=== PATIENT | male | born 1970 | race Caucasian/White ===

== ENCOUNTER 2021-05-19 18:01 | Emergency (ER) | payer SELFPAY ==
--- NOTE | 2021-05-19 18:04 | ED.BACK ---
HPI - Back Pain/Injury General Chief Complaint: Back Pain/Injury Stated Complaint: Lower back pain Time Seen by Provider: 05/19/21 18:04 Source: patient and RN notes reviewed History of Present Illness HPI Narrative: Patient is a 50-year-old male who presents the urgent care with complaints of low back pain radiating down the left leg. Patient states approximately 1 week ago he got up out of bed and noticed some low back pain across the entire back. Patient states that now just concentrated on the left with the radiation down the left thigh. Patient states he does have a history of sciatica. Denies of any known trauma or injury. States that he took 200 mg of ibuprofen. No other acute complaints. No acute distress noted. Patient aware of the plan of care. Some parts of this dictation were generated by voice recognition software and may contain typographical and/or grammatical inaccuracies. Related Data Allergies Allergy/AdvReac Type Severity Reaction Status Date / Time No Known Allergies Allergy Verified 05/19/21 18:23 Review of Systems Review of Systems: CONSTITUTIONAL: Denies fever, chills, or sweats. EYES: Denies visual changes, redness, or discharge. ENT: Denies rhinorrhea, congestion, sore throat, or otalgia. CARDIOVASCULAR: Denies chest pain, palpitations, or edema. RESPIRATORY: Denies cough or dyspnea. GASTROINTESTINAL: Denies abdominal pain, nausea, vomiting, or diarrhea. GENITOURINARY: Denies dysuria or hematuria. SKIN: Denies rash or itching. MUSCULOSKELETAL: Reports of low back pain radiating down the left leg NEUROLOGIC: Denies headache, numbness, or weakness. All other systems reviewed are negative, except as documented in HPI. PMFSH Comments At the time of my signature, I reviewed and agree with the nursing past medical, surgical, social, and family history. There is no relevant family history pertinent to the patient complaint. Exam Narrative: GENERAL: This is a well-nourished, well-developed patient, in no apparent distress. HEAD: normocephalic, atraumatic. EYES: PERRL. Sclera clear/white. Vision is grossly intact. EARS: External ears normal NOSE: External nose normal with no obvious nasal discharge, nares without redness, no rhinorrhea. THROAT: Mucous membranes moist NECK: Neck supple, non-tender without lymphadenopathy, masses or thyromegaly. CARDIOVASCULAR: Regular rate and rhythm without RESPIRATORY: Clear to auscultation. Breath sounds equal bilaterally. No wheezes, rales, or rhonchi. SKIN: warm, intact with no suspicious lesions or rash, good texture and turgor. NEURO: awake, alert, and oriented to person, place and time. There were no obvious focal neurologic abnormalities. EXTREMITIES: No clubbing, cyanosis, or edema. BACK: Moderate left lumbar tenderness with positive left SLE Course Vital Signs Vital signs: Vital Signs Temperature 98.0 F 05/19/21 18:15 Pulse Rate 85 05/19/21 18:15 Respiratory Rate 18 05/19/21 18:15 Blood Pressure 156/95 H 05/19/21 18:15 Pulse Oximetry 99 05/19/21 18:15 Temperature 98.0 F 05/19/21 18:15 Pulse Rate 85 05/19/21 18:15 Respiratory Rate 18 05/19/21 18:15 Blood Pressure 156/95 H 05/19/21 18:15 Pulse Oximetry 99 05/19/21 18:15 Reviewed-patient is informed that they may have pre-hypertension or hypertension based on a blood pressure reading in the department. I recommend the patient call the primary care provider listed on their discharge instructions or a physician of their choice this week to arrange follow-up for further evaluation of possible pre-hypertension or hypertension. MDM - Back Pain/Injury MDM Narrative Medical decision making narrative: Advised the patient to complete steroid regimen as prescribed. Be sure to eat and drink with the medication. Use the ibuprofen as needed for pain as well as a heating pad or ice pack. Use in 20-minute intervals and do not sleep with an ice pack or heating pad. Use Flexeril as nee
[2021-05-19 18:15] VITALS: BP 156/95; PULSE 85; RESP 18; TEMP 36.7; O2SAT 99
== END 2021-05-19 18:34 | disposition home or self-care (01) ==
PROVIDERS: Emergency Provider Nurse Practitioner Family
DX: M54.32 Sciatica, left side (principal)
CPT/HCPCS: 99213; G0463

== ENCOUNTER 2022-04-19 18:02 | Emergency (ER) | payer SELFPAY ==
--- NOTE | ~2022-04-19 | XR_ITS ---
XR wrist LT min 3V DATE: 04/19/2022 18:40 INDICATION: Palpable knot at lateral aspect of wrist for one month. No known injury. TECHNIQUE: 4 views COMPARISON: None FINDINGS: No fracture or dislocation, periosteal reaction or bone destruction, erosive change or delmy drocalcinosis. No abnormal soft tissue calcification. No subcutaneous emphysema. IMPRESSION: Negative Reviewed, dictated and finalized at location A. IMPRESSION: Negative
[2022-04-19 18:20] VITALS: BP 146/94; PULSE 80; RESP 20; TEMP 36.8; O2SAT 98
--- NOTE | 2022-04-19 19:15 | ED.UPPEXIN ---
HPI - Extremity Injury (Upper) General Chief Complaint: Extremity Injury, Upper Stated Complaint: Pain in the left wrist Time Seen by Provider: 04/19/22 18:50 Source: patient, RN notes reviewed and old records reviewed Mode of arrival: ambulatory Limitations: no limitations History of Present Illness HPI narrative: 51-year-old male who presents to [facility] with complaints of pain to the lateral aspect of the wrist on thumb side for 1 month with no known injury. Patient states that the other day he felt a popping sensation in his left wrist. 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 Patient denies any tingling or numbness to his left hand or fingers, does have area of palpable tenderness to inner wrist area thumb side which also increases with use of his thumb, has been using ice to wrist area. Treatments prior to arrival: cold therapy Related Data Allergies Allergy/AdvReac Type Severity Reaction Status Date / Time No Known Allergies Allergy Verified 04/19/22 18:35 Review of Systems Review of Systems: CONSTITUTIONAL: Denies fever, chills, or sweats. EYES: Denies visual changes, redness, or discharge. ENT: Denies rhinorrhea, congestion, sore throat, or otalgia. CARDIOVASCULAR: Denies chest pain, palpitations, or edema. RESPIRATORY: Denies cough or dyspnea. GASTROINTESTINAL: Denies abdominal pain, nausea, vomiting, or diarrhea. GENITOURINARY: Denies dysuria or hematuria. SKIN: Denies rash or itching. MUSCULOSKELETAL: Denies back pain, pain to left wrist, or myalgia. NEUROLOGIC: Denies headache, numbness, or weakness. PSYCHIATRIC: Denies anxiety or depression. All systems reviewed & are unremarkable except as noted in HPI and below PMFSH Past Medical History Medical History (Updated 04/22/22 @ 09:07 by Kat Ruiz NP) Atrial fibrillation Fracture of left elbow Surgical History Surgical History (Updated 04/22/22 @ 09:01 by Kat Ruiz NP) H/O arthroscopy of left knee History of cardiac radiofrequency ablation x2 Social History Social History (Updated 04/22/22 @ 09:01 by Kat Ruiz NP) Smoking packs per day: 1 Smoking cigarettes per day: 20.0 Years smoked: 25 Smoking pack-years: 25.00 Smoking status: Former smoker Tobacco type: cigarettes Additional smoking assessment comments: Quit September of 2018 Alcohol intake: current Alcohol use details: social Substance use type: does not use Living arrangements: with family Gender identity (if verbalized by the patient): Male Comments At time of signature, agree with nursing past medical, surgical, social and family history. There is no relevant family history pertinent to the presenting complaint Exam Narrative: GENERAL: Well-appearing, well-nourished, and in no acute distress. HEAD: Normocephalic, atraumatic. EYES: PERRLA and EOMI. ENT: Nares clear, no rhinorrhea or epistaxis. Mucous membranes moist.TM's normal with good light reflex, throat pink with no lesions or exudates or tonsil swelling. NECK: Supple.no lymphadenopathy CHEST: Clear to auscultation. No respiratory distress.SAO2 98% on room air HEART: Regular rate and rhythm. No murmur heard. Normal peripheral pulses. ABDOMEN: Soft, nontender, nondistended, normal active bowel sounds. EXTREMITIES: Normal range of motion. No edema.no noted obvious deformity of left wrist, palpable tenderness to left inner wrist thumb side with no palpable mass or noted acute swelling, mobility is intact but with some stated discomfort, circulation and sensation intact to left wrist and hand. SKIN: Warm, dry, no rash. NEURO: No focal deficits. Alert and oriented x3. Course Course Level of Care: Express Care Visit Vital Signs Vital signs: Vital Signs Temperature 36.8 C 04/19/22 18:20 Pulse Rate 80 04/19/22 18:20 Respiratory Rate 20 04/19/22 18:20 Blood Pressure 146/94 H 04/19/22 18:20 Pulse Oximetry 98 07
== END 2022-04-19 19:43 | disposition home or self-care (01) ==
PROVIDERS: Emergency Provider Registered Nurse
DX: M25.532 Pain in left wrist (principal); Z87.891 Personal history of nicotine dependence; I48.91 Unspecified atrial fibrillation
CPT/HCPCS: 73110; 99213; G0463

== ENCOUNTER 2022-05-29 09:27 | Emergency (ER) | payer SELFPAY ==
[2022-05-29 09:32] VITALS: BP 151/83; PULSE 96; RESP 18; TEMP 36.6; O2SAT 98
--- NOTE | 2022-05-29 10:07 | ED.URI ---
HPI - URI/Sore Throat General Chief Complaint: Upper Respiratory Infection Stated Complaint: nausea headache chills Time Seen by Provider: 05/29/22 09:50 Source: patient, RN notes reviewed and old records reviewed Mode of arrival: ambulatory Limitations: no limitations History of Present Illness HPI Narrative: 51 year old male who presets to express care with complaints of having some respiratory congestion for about a week but has had 2 days of headache, chills, body aches especially in shoulders, extreme fatigue. Patient reports that he has had COVID vaccinations but has not had Flu shot, has been taking Mucinex and Ibuprofen. 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 MD elicited complaint: rhinorrhea, nasal congestion and other (headache) Pain scale (0-10): 4 Related Data Home Medications Medication Instructions Recorded Confirmed buspirone 10 mg tablet 10 mg PO DAILY 05/29/22 05/29/22 Allergies Allergy/AdvReac Type Severity Reaction Status Date / Time No Known Allergies Allergy Verified 05/29/22 10:11 Review of Systems Review of Systems: CONSTITUTIONAL: Denies fever, positive for chills, or sweats. EYES: Denies visual changes, redness, or discharge. ENT: Positive for rhinorrhea, congestion,no sore throat, or otalgia. CARDIOVASCULAR: Denies chest pain, palpitations, or edema. RESPIRATORY: Positive for cough denies dyspnea. GASTROINTESTINAL: Denies abdominal pain,positive for nausea,no vomiting, or diarrhea. GENITOURINARY: Denies dysuria or hematuria. SKIN: Denies rash or itching. MUSCULOSKELETAL: Denies back pain, joint pain, positive for body aches. NEUROLOGIC: Positive for headache, no numbness, or weakness. PSYCHIATRIC: Positive for history of anxiety or depression. All systems reviewed & are unremarkable except as noted in HPI and below PMFSH Past Medical History Medical History (Updated 06/02/22 @ 08:48 by Kat Ruiz NP) Atrial fibrillation Fracture of left elbow Surgical History Surgical History (Updated 04/22/22 @ 09:01 by Kat Ruiz NP) H/O arthroscopy of left knee History of cardiac radiofrequency ablation x2 Social History Social History (Updated 04/22/22 @ 09:01 by Kat Ruiz NP) Smoking packs per day: 1 Smoking cigarettes per day: 20.0 Years smoked: 25 Smoking pack-years: 25.00 Smoking status: Former smoker Tobacco type: cigarettes Additional smoking assessment comments: Quit September of 2018 Alcohol intake: current Alcohol use details: social Substance use type: does not use Gender identity (if verbalized by the patient): Male Comments At time of signature, agree with nursing past medical, surgical, social and family history. There is no relevant family history pertinent to the presenting complaint Exam Narrative: GENERAL: Well-appearing, well-nourished, obese and in no acute distress. HEAD: Normocephalic, atraumatic. EYES: PERRLA and EOMI. ENT: Nares mild redness with clear rhinorrhea no epistaxis. Mucous membranes moist.TM's normal with good light reflex, throat redness no tonsil swelling post nasal drainage noted NECK: Supple.no lymphadenopathy CHEST: Clear to auscultation. No respiratory distress. cough SAO2 98% on room air HEART: Regular rate and rhythm. No murmur heard. Normal peripheral pulses. ABDOMEN: Soft, nontender, nondistended, normal active bowel sounds. EXTREMITIES: Normal range of motion. No edema. SKIN: Warm, dry, no rash. NEURO: No focal deficits. Alert and oriented x3. Course Course Level of Care: Express Care Visit Vital Signs Vital signs: Vital Signs Temperature 36.6 C 05/29/22 09:32 Pulse Rate 96 05/29/22 09:32 Respiratory Rate 18 05/29/22 09:32 Blood Pressure 151/83 H 05/29/22 09:32 Pulse Oximetry 98 05/29/22 09:32 Oxygen Delivery Room Air 05/29/22 09:32 Temperature 36.6 C 05/29/22 09:32 Pulse Rate 96 05/29/22 09:32 Respiratory
[2022-05-29 18:53] LABS: SARS-CoV-2 RNA PCR Negative
== END 2022-05-29 10:58 | disposition home or self-care (01) ==
PROVIDERS: Emergency Provider Registered Nurse
DX: J06.9 Acute upper respiratory infection, unspecified (principal); Z20.822 Contact with and (suspected) exposure to COVID-19; Z87.891 Personal history of nicotine dependence; I48.91 Unspecified atrial fibrillation
CPT/HCPCS: 87426; 87804; 99213; C9803; G0463; U0003; U0005

== ENCOUNTER 2022-09-08 12:46 | Emergency (ER) | payer SELFPAY ==
--- NOTE | ~2022-09-08 | XR_ITS ---
Right Hand Technique: PA, oblique, and lateral views were obtained. Clinical History: Pain, trauma Findings: No acute fracture or dislocation is seen. Osseous alignment is anatomic. Joint spaces are p reserved. Soft tissues are unremarkable. Impression: Unremarkable right hand. Reviewed, dictated and finalized at location [] [employer] Impression: Unremarkable right hand.
[2022-09-08 12:54] VITALS: BP 160/100; PULSE 106; RESP 18; TEMP 37.2; O2SAT 99
--- NOTE | 2022-09-08 15:17 | ED.UPPEXIN ---
HPI - Extremity Injury (Upper) General Chief Complaint: Extremity Injury, Upper Stated Complaint: Right Hand Injury Source: patient Mode of arrival: ambulatory Limitations: no limitations History of Present Illness HPI narrative: 51-year-old male presented for complaint of right hand pain and swelling after injury today. He states he dropped a tool box on the right hand after tripping and falling. Patient denies numbness, tingling, weakness of the hand or fingers. Related Data Home Medications Medication Instructions Recorded Confirmed No Home Medications 09/08/22 09/08/22 Allergies Allergy/AdvReac Type Severity Reaction Status Date / Time No Known Allergies Allergy Verified 09/08/22 14:05 Review of Systems Review of Systems: CONSTITUTIONAL: Denies body aches, fever, chills CARDIOVASCULAR: Denies chest pain, palpitations, or edema. RESPIRATORY: Denies cough or dyspnea. GASTROINTESTINAL: Denies abdominal pain, nausea, vomiting, or diarrhea. SKIN: Denies rash, itching, or wounds. MUSCULOSKELETAL: Per HPI NEUROLOGIC: Denies headache, numbness, tingling, or weakness. All systems reviewed & are unremarkable except as noted in HPI and below PMFSH Past Medical History Medical History Atrial fibrillation Fracture of left elbow Surgical History Surgical History H/O arthroscopy of left knee History of cardiac radiofrequency ablation x2 Social History Social History Smoking packs per day: 1 Smoking cigarettes per day: 20.0 Years smoked: 25 Smoking pack-years: 25.00 Smoking status: Former smoker Tobacco type: cigarettes Additional smoking assessment comments: Quit September of 2018 Alcohol intake: current Alcohol use details: social Substance use type: does not use Gender identity (if verbalized by the patient): Male Comments At time of signature, I have reviewed and agree with nursing past medical, surgical, social and family history unless otherwise noted. Please see nursing chart for further information. There is no relevant family history pertinent to the presenting complaint Exam Narrative: GENERAL: Well-appearing CHEST: No respiratory distress. HEART: Regular rate and rhythm. Normal and equal peripheral pulses. EXTREMITIES: right hand has normal strength and sensation, slightly limited range of motion due to swelling at 3rd and 4th MCPs With tenderness to palpation. No open wounds, alignment normal, pulse palpable and equal bilaterally, skin warm, dry, pink. Capillary refill less than 3 seconds. SKIN: Warm, dry, no rash. NEURO: Alert and oriented x3. PSYCH: Normal mood and affect Course Course Emergency Course: Patient is aware of diagnosis, understands and agrees to treatment plan. Anticipatory guidance given. Patient agrees to follow-up as directed and is aware of reasons to seek care at the emergency department. Portions of this record may have been created with voice recognition software Level of Care: Express Care Visit Vital Signs Vital signs: Vital Signs Temperature 99 F 09/08/22 12:54 Pulse Rate 106 H 09/08/22 12:54 Respiratory Rate 18 09/08/22 12:54 Blood Pressure 160/100 H 09/08/22 12:54 Pulse Oximetry 99 09/08/22 12:54 Oxygen Delivery Room Air 09/08/22 12:54 Temperature 99 F 09/08/22 12:54 Pulse Rate 106 H 09/08/22 12:54 Respiratory Rate 18 09/08/22 12:54 Blood Pressure 160/100 H 09/08/22 12:54 Pulse Oximetry 99 09/08/22 12:54 Oxygen Delivery Room Air 09/08/22 12:54 Reviewed MDM - Extremity Injury (Upper) MDM Narrative Medical decision making narrative: results of x-ray reviewed with patient. Nikolai wrap applied. Advised supportive measures and signs/symptoms to go to the ER. Pt is appropriate for outpt treatment and f/u. Ludivina
== END 2022-09-08 15:27 | disposition home or self-care (01) ==
PROVIDERS: Emergency Provider Nurse Practitioner Family
DX: S60.221A Contusion of right hand, initial encounter (principal); W20.8XXA Other cause of strike by thrown, projected or falling object, initial encounter; I48.91 Unspecified atrial fibrillation; Z87.891 Personal history of nicotine dependence
CPT/HCPCS: 73130; 99213; G0463

== ENCOUNTER 2024-03-26 08:06 | Emergency (ER) | payer SELFPAY ==
[2024-03-26 08:11] VITALS: BP 177/105; PULSE 110; RESP 16; TEMP 36.6; O2SAT 97
--- NOTE | 2024-03-26 08:16 | ED.URI ---
HPI - URI/Sore Throat General Chief Complaint: Upper Respiratory Infection Stated Complaint: sinus/cold/flu symptoms Time Seen by Provider: 03/26/24 08:17 Source: patient, RN notes reviewed and old records reviewed Mode of arrival: ambulatory Limitations: no limitations History of Present Illness HPI Narrative: 53-year-old male to Express Care with complaint of nonproductive cough, headache, sinus congestion in increased sweating for 3 days. Patient denies fever, dizziness, GI complaints, allergies , shortness of breath, chest pain. patient endorses history of hypertension states that he is not currently on medication due to at o'clock cost and not having a primary care doctor. Discussed with patient the importance of following up with a PCP for hypertension. Patient to tolerate fluids by mouth. Respirations even and nonlabored. Patient in no acute distress. Related Data Allergies Allergy/AdvReac Type Severity Reaction Status Date / Time No Known Allergies Allergy Verified 09/08/22 14:05 Review of Systems Review of Systems: All systems reviewed & are unremarkable except as noted in HPI and below Constitutional: Constitutional: Reports as per HPI, Reports excessive sweating and Reports headache(s) Eyes: Eyes: Reports no additional eye complaints ENT: Reports as per HPI, Reports otalgia, Reports nasal congestion and Reports sinus pressure Cardiovascular: Cardiovascular: Reports no additional cardiovascular complaints, Denies chest pain and Denies dyspnea Respiratory: Respiratory: Reports no additional respiratory complaints, Reports cough and Denies dyspnea Musculoskeletal: Musculoskeletal: Reports no additional musculoskeletal complaints Neurologic: Reports system reviewed and no additional complaints, except as documented Psychiatric: Psychiatric: Reports no additional psychiatric complaints PMFSH Past Medical History Medical History Atrial fibrillation Fracture of left elbow Surgical History Surgical History H/O arthroscopy of left knee History of cardiac radiofrequency ablation x2 Social History Social History Smoking packs per day: 1 Smoking cigarettes per day: 20.0 Years smoked: 25 Smoking pack-years: 25.00 Smoking status: Former smoker Tobacco type: cigarettes Additional smoking assessment comments: Quit September of 2018 Alcohol intake: current Alcohol use details: social Substance use type: does not use Living arrangements: with family Gender identity (if verbalized by the patient): Male Comments At the time of my signature, I reviewed and agree with the nursing past medical, surgical, social, and family history. There is no relevant family history pertinent to the patient complaint. Exam Const: General: cooperative, no acute distress, alert, tired appearing, uncomfortable and well nourished Nutritional Appearance: well nourished Orientation/consciousness: patient oriented x3 Limitations: no limitations HENMT: Head: normal to inspection Ears: Abnormal EAC present erythema bilateral and edema bilateral; no EA tenderness and TM abnormal bulging on the left and with fluid behind the TM bilateral (perulent) Face/Nose/Sinus: Normal external nose present, Normal nares present, normal facial exam, No erythema and No edema Face and sinus: normal facial exam, no erythema and no edema Mouth: Yes Normal oral and palatal mucosa present Throat: postnasal drainage Eyes: General: appearance normal, both eyes and all related structures Neck: Neck: normal visual inspection, full ROM and no meningeal signs Lymphatic: no lymphadenopathy noted and no lymphedema noted Chest: Chest palpation & inspection: normal inspection of the chest Resp: Effort & Inspection: normal respiratory effort and able to speak in
== END 2024-03-26 08:44 | disposition home or self-care (01) ==
PROVIDERS: Emergency Provider Nurse Practitioner Family
DX: H66.92 Otitis media, unspecified, left ear (principal); R05.9 Cough, unspecified; Z87.891 Personal history of nicotine dependence; I48.91 Unspecified atrial fibrillation; I10 Essential (primary) hypertension; Z91.141 Patient's other noncompliance with medication regimen due to financial hardship
CPT/HCPCS: 99213; G0463

== ENCOUNTER 2024-06-25 13:59 | Emergency (ER) | payer OTHER, SELFPAY ==
[2024-06-25 14:08] VITALS: BP 131/81; PULSE 86; RESP 20; TEMP 36.9; O2SAT 97
--- NOTE | 2024-06-25 14:48 | ED.URI ---
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 He denies associated chest pain, palpitations or dizziness. He states that he experienced the symptoms intermittently between 0700 and 1300 today when he left work. Since that time, his symptoms have resolved. He did not attempt any modifying factors to resolve his symptoms. He states he was evaluated in the emergency room at [facility] a few months ago after experienced similar symptoms and was diagnosed with anxiety, prescribed Vistaril which did seem to help with symptoms however he did not have insurance at that time and did not see a primary doctor for a refill. He now does have medical insurance and is hoping to establish care with PCP. He denies any additional associated symptoms modifying factors. He needs a work note to return tomorrow to his regular scheduled shift Related Data Allergies Allergy/AdvReac Type Severity Reaction Status Date / Time No Known Allergies Allergy Verified 06/25/24 14:50 Review of Systems ENT: Comments: refer HPI Psychiatric: Comments: refer to [facility] Past Medical History Medical History Atrial fibrillation Fracture of left elbow Surgical History Surgical History H/O arthroscopy of left knee History of cardiac radiofrequency ablation x2 Social History Social History Smoking packs per day: 1 Smoking cigarettes per day: 20.0 Years smoked: 25 Smoking pack-years: 25.00 Smoking status: Former smoker Tobacco type: cigarettes Additional smoking assessment comments: Quit September of 2018 Alcohol intake: current Alcohol use details: social Substance use type: does not use Living arrangements: with family Gender identity (if verbalized by the patient): Male Exam Const: General: healthy appearing, no acute distress and alert Nutritional Appearance: obese Orientation/consciousness: patient oriented x3 Limitations: no limitations HENMT: Head: normal to inspection Ears: external ears normal and TM's normal bilaterally Face/Nose/Sinus: Normal external nose present Face and sinus: normal facial exam Mouth: Yes Normal oral and palatal mucosa present, Yes lip normal and Yes moist mucous membranes Teeth and gingiva: dentition normal Throat: posterior oropharynx normal and uvula midline Eyes: Conjunctivae: conjunctivae normal Pupils: Equal, round and reactive pupils present EOM: EOMs intact bilaterally Direct Ophthalmoscopy: no photophobia Neck: Neck: normal visual inspection, no lymphadenopathy and no meningeal signs Chest: Chest palpation & inspection: normal inspection of the chest Resp: Effort & Inspection: normal respiratory effort Auscultation: clear to auscultation bilaterally Cardio: Rate: regular rate Rhythm: regular rhythm Skin: General skin exam: normal color Rashes: no rashes Wounds: no wounds Neuro: General: patient oriented x3, moves all extremities, no meningeal signs, no focal motor deficits and CN's II-XI intact bilaterally Cranial nerves: Yes Nystagmus not present Extrem: General: normal to inspection, no clubbing, cyanosis or edema and no pedal edema Psych: Mental Status: mental status grossly normal Other: patient does endorse history of anxiety and appears to be stres
== END 2024-06-25 15:00 | disposition home or self-care (01) ==
PROVIDERS: Emergency Provider Nurse Practitioner Family
DX: F41.9 Anxiety disorder, unspecified (principal); I48.91 Unspecified atrial fibrillation; Z87.891 Personal history of nicotine dependence
CPT/HCPCS: 99213; G0463

== ENCOUNTER 2025-06-13 14:11 | Emergency (ER) | payer OTHER, SELFPAY ==
--- NOTE | 2025-06-13 14:12 | ED_ITS ---
HPI - Dizziness General Chief Complaint: Dizziness Stated Complaint: dizziness Time Seen by Provider: 06/13/25 14:12 Source: patient Mode of arrival: ambulatory Limitations: no limitations History of Present Illness HPI Narrative: Olu is a 54-year-old male patient presenting to the clinic today with complaints of lightheadedness/dizziness that started this afternoon. 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 States he has a history of heat exhaustion he was a child and does not handle he took well. 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 Denies any headache, visual changes, chest pain, or shortness of breath. Has not taken anything to treat his symptoms. History of AFib with 2 cardiac ablation and anxiety. Related Data Home Medications ?Medication ?Instructions ?Recorded ?Confirmed ?Last Taken ?Type No Home Medications 06/13/25 06/13/25 U nknown History Allergies Allergy/AdvReac Type Severity Reaction Status Date / Time No Known Allergies Allergy Verified 06/13/25 14:21 Review of Systems Review of Systems: Pertinent positives per HPI. Patient denies any fever, chills, rash, headache, visual changes, cough, shortness of breath, chest pain, palpitations, nausea, vomiting, diarrhea, constipation, abdominal pain, or any urinary issues. [facility] Past Medical History Medical History Atrial fibrillation Fracture of left elbow Surgical History Surgical History History of cardiac radiofrequency ablation x2 H/O arthroscopy of left knee Social History Social History Smoking packs per day: 1 Smoking cigarettes per day: 20.0 Years smoked: 25 Smoking pack-years: 25.00 Smoking status: Former smoker Tobacco type: cigarettes Additional smoking assessment comments: Quit September of 2018 Alcohol intake: current Alcohol use details: social Substance use type: does not use Living arrangements: with family Gender identity (if verbalized by the patient): Male Comments At the time of my signature, I reviewed and agree with the nursing past medical, surgical, social, and family history. There is no relevant family history pertinent to the patient complaint. Exam Narrative: General: Well-developed, obese, in no apparent distress Head: Normocephalic, atraumatic Eyes: Pupils equally round and reactive to light bilaterally, EOM intact, sclera and conjunctive clear, no discharge, lids normal Ears: TMs intact and clear, ear canals clear, no drainage, grossly hearing normal. Nose: Nares patent, no discharge, no inflammation, no sinus tenderness. Mouth: Oropharynx without lesions or masses, good dentition, MMM. Tongue midline, even rise and fall of uvula Neck: Supple, trachea midline, no enlargement of anterior or posterior cervical nodes, no thyroid masses or goiter palpable. Cardio: Regular rate and rhythm, s1 and s2 normal, no murmur appreciated. Resp: Clear to auscultation bilaterally anteriorly and posteriorly, no rhonchi, rales, wheezing or rubs Musculoskeletal: No deformity, non-tender to palpation, grossly normal range of motion, muscle strength strong and equal, peripheral pulse strong, no edema, no cyanosis, normal gait and station Neuro: Alert and oriented x4 with normal speech, no focal deficits, cranial nerves I through XII intact, muscle strength 5 out of 5, sensation intact bilaterally, negative Romberg test Course Course Emergency Course: Portions of this record may have been created with voice recognition software. Level of Care: Express Care Visit Vital Signs Vital signs: Vital Signs Temperature 36.6 C 06/13/25 14:24 Pulse Rate 103 H 06/13/25 14:24 Respiratory Rate 20 06/13/25 14:24 Blood Pressure 170/88 H 06/13/25 14:24 Pulse Oximetry 98 06/13/25 14:24 Oxygen Delivery Room Air 06/13/25 14:24 Temperature 36.6 C 06/13/25 14:24 Pulse Rate 95 06/13/25 14:40 Respiratory Rate 20 06/13/25 14:24 Blood Pressure 160/90 H 06/13/25 14:40 Pulse Oximetry 98 06/13/25 14:24 Oxygen Delivery Room Air 06/13/25 14:24 Vital signs reviewed Transfer Accepting physician: Dr. Quintana MDM - Dizziness MDM Narrative Medical decision making narrative: At the time of visit patient is resting comfortably on the exam table. Patient appears to be nontoxic. Complaints of lightheadedness/dizziness that started this afternoon. 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 States he has a history of heat exhaustion he was a child and does not handle he took well. 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 Denies any headache, visual changes, chest pain, or shortness of breath. Has not taken anything to treat his symptoms. History of AFib with 2 cardiac ablation and anxiety. EKG, blood sugar, and orthostatic blood pressures were ordered. EKG: EKG shows atrial fibrillation with heart rate of 81 beats per minute with a nonspecific T-wave abnormality. No ST elevation or depression noted. Labs: Blood sugar was 102 Orthostatic blood pressure: Lying blood pressure was 165/110 heart rate of 98, sitting blood pressure is 171/108 heart rate of 93, and standing blood pressure was 160/90 heart rate 95 Plan: Patient's blood pressure is elevated in the clinic and he has a history of AFib with complaints of dizziness. He feels unsteady on his feet. Denies headache, visual changes, shortness of breath, or chest pain. Due to patient's symptoms and he is not on any blood thinners for his AFib any is experiencing elevated blood pressure I recommend transfer to the ER for further evaluation. Patient agrees to transfer. Patient would like to go to [facility] in [place], [place]. Contacted [facility] and Dr. Quintana accepts patient for transfer. Differential Diagnosis Differential diagnosis: Likely adverse reaction to drug, benign paroxysmal positional vertigo, orthostatic hypotension, vertebral basilar insufficiency, cerebrovascular accident, acute vestibular neuronitis, transient cerebral ischemia and other (AFib with RVR, dysrhythmia, hypoglycemic) Lab Data Labs: Lab Results 06/13/25 Range/Units 14:30 POC Capillary Glucose 102 (65-105) mg/dl ECG Data EKG #1: Attestation: I personally reviewed and interpreted this ECG as follows: ECG completion date: 06/13/25 ECG completion time: 14:32 Interpretation: EKG shows atrial fibrillation with a heart rate of 81 beats per minute without ST elevation or depression. Noted nonspecific T-wave abnormality. QRS durations 108 milliseconds, QT-QTC is 57-397 millisecond P-R just T axis * 52 12 Discharge Plan Discharge Clinical Impression: Dizziness, Hypertension, A-fib Patient Disposition: Acute Care Hospital Condition: Stable Patient Language: Cameroonian Prescriptions: No Action No Home Medications Follow-up/Referrals: UNKNOWN,DOCTOR [Primary Care Provider] Time of Disposition: 14:59 Quality NIHSS Nursing Documentation ED NIHSS nursing documentation: reviewed/agree
--- OUTSIDE RECORDS SUMMARY | 2025-06-13 14:16 | XMS_ITS | Clinical Summary ---
Author Organization [facility] Address [address] [place] [address] Care Team Providers Care Tennis Director Name Role Phone Maxx Dunaway MD Primary Care Provider Allergies No known active allergies Medications hydrOXYzine (ATARAX) 25 mg tablet Take 1 tablet (25 mg total) by mouth every 6 (six) hours 12 tablet 01/28/2024 Active ketorolac (TORADOL) 10 mg tablet Take 1 tablet (10 mg total) by mouth every 6 (six) hours as needed for pain 20 tablet 05/01/2025 Active methocarbamoL (ROBAXIN) 500 mg tablet Take 1 tablet (500 mg total) by mouth 2 (two) times a day 20 tablet 05/01/2025 Active lidocaine (LIDODERM) 5 % Place 1 patch on the skin daily for 12 hours for 14 days Remove & discard patch within 12 hours or as directed by . 14 patch 05/01/2025 Active Encounters Date Type Department Care Team Description 05/01/2025 7:56 AM CDT - 05/01/2025 8:46 AM CDT Emergency [facility] Emergency Department [address] [place] [address] Acute midline low back pain without sciatica (Primary Dx) Discharge Disposition: Discharge to home or self care from Last 3 Months Social History Tobacco Use Types Packs/Day Years Used Date Smoking Tobacco: Never Assessed Personal Safety Answer Date Recorded Have you ever been in or are you currently in a harmful physical or emotional relationship or is someone making you feel afraid or unsafe? 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 Gender Identity Not on file Sexual Orientation Not on file Last Filed Vital Signs Vital Sign Reading Time Taken Comments Blood Pressure 153/98 05/01/2025 7:55 AM CDT Pulse 101 05/01/2025 7:55 AM CDT Temperature 36.8 C (98.2 F) 05/01/2025 7:55 AM CDT Respiratory Rate 16 05/01/2025 7:55 AM CDT Oxygen Saturation 94% 05/01/2025 7:55 AM CDT Inhaled Oxygen Concentration - - Weight 131.5 kg (290 lb) 05/01/2025 7:55 AM CDT Height 182.9 cm (6') 01/28/2024 8:05 PM CDT Body Mass Index 39.33 01/28/2024 8:05 PM CDT Plan of Treatment Health Maintenance Due Date Last Done Comments Colon Cancer Screening-Colonoscopy 1971 Depression Screening 1971 Hepatitis C Screening 1971 Prostate Cancer Screening-PSA 1971 DTaP/Tdap/Td Vaccine (1 - Tdap) 11/26/1982 Hepatitis B Screening 11/26/1989 Regular Well Visit/Exam 18-64 11/26/1989 Zoster Vaccine (1 of 2) 11/26/2021 Influenza Vaccine (#1) 2025 Pneumococcal vaccine <65 Aged Out No longer eligible based on patient's age to complete this topic Procedures Procedure Name Priority Date/Time Associated Diagnosis Comments XR SPINE LUMBAR 2 OR 3 VIEWS ED 05/01/2025 8:10 AM CDT from Last 3 Months Results * XR Spine Lumbar 2 or 3 Views (05/01/2025 8:10 AM CDT) Anatomical Region Laterality Modality Spine N/A Computed Radiogr aphy 05/01/2025 8:16 AM CDT Narrative 05/01/2025 8:18 AM CDT EXAM DESCRIPTION: XR SPINE LUMBAR 2 OR 3 VIEWS REASON FOR STUDY: pain c/o back pain x 1 day. 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 Pt states pain 7/10. Pt denies taking medications to help TECHNIQUE: 3 radiographic view(s) of the lumbar spine. COMPARISON: None. FINDINGS: ALIGNMENT: Anatomic. VERTEBRAE: No acute displaced fracture. Vertebral body heights are grossly maintained. Mild multilevel osteophytosis. Facet arthrosis most pronounced at L5-S1. INTERVERTEBRAL DISCS: Mild multilevel intervertebral disc height loss. SOFT TISSUES: Unremarkable. Spinal canal and neuroforaminal narrowing poorly evaluated by radiograph. OTHER: No other significant abnormality. IMPRESSION: No acute osseous abnormality. Degenerative changes most pronounced at L5-S1. THIS IS AN ELECTRONICALLY VERIFIED FINAL REPORT 05/01/2025 8:18 AM - Electronically signed by Pranav Pringle M.D. NS: NS Report ID: [id number] Reading Location: [place] [address] Procedure Note Pranav Pringle MD - 05/01/2025 EXAM DESCRIPTION: XR SPINE LUMBAR 2 OR 3 VIEWS REASON FOR STUDY: pain c/o back pain x 1 day. Pt states he was at work and offloading pallAmootoonfrom a trailer and injured his back. Pt states pain 7/10. Pt denies taking medications to help TECHNIQUE: 3 radiographic view(s) of the lumbar spine. COMPARISON: None. FINDINGS: ALIGNMENT: Anatomic. VERTEBRAE: No acute displaced fracture. Vertebral body heights aregrossly maintained. Mild multilevel osteophytosis. Facet arthrosis mostpronounced at L5-S1. INTERVERTEBRAL DISCS: Mild multilevel intervertebral disc height loss. SOFT TISSUES: Unremarkable. Spinal canal and neuroforaminal narrowingpoorly evaluated by radiograph. OTHER: No other significant abnormality. IMPRESSION: No acute osseous abnormality. Degenerative changes most pronounced atL5-S1. THIS IS AN ELECTRONICALLY VERIFIED FINAL REPORT 05/01/2025 8:18 AM - Electronically signed by Pranav Pringle M.D. NS: NS Report ID: [id number] Reading Location: [place] [address] [facility] IMG XR PROCEDURES Final Result from Last [address] [facility] Care Teams Tennis Director Relationship Specialty Start Date End Date Maxx Dunaway MD PCP - General 06/24/09
--- OUTSIDE RECORDS SUMMARY | 2025-06-13 14:16 | XMS_ITS | Clinical Summary ---
Author Organization [facility] Address [address] [place] [address] Phone Care Team Providers Care Interface Analyst Name Role Phone Provider, None Primary Care Provider Unavailabl e Allergies No known active allergies Medications naproxen (NAPROSYN) 500 MG TabletIndication s:Pain Take 1 Tablet by mouth 2 times daily as needed for Mild or more severe pain. 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 Gender Identity Not on file Sexual Orientation Not on file Last Filed Vital Signs Vital Sign Reading Time Taken Comments Blood Pressure 148/99 06/26/2024 4:12 PM CDT Pulse 77 06/26/2024 4:12 PM CDT Temperature 36.1 C (97 F) 06/26/2024 4:12 PM CDT Respiratory Rate 17 06/26/2024 4:12 PM CDT Oxygen Saturation 99% 06/26/2024 4:12 PM CDT Inhaled Oxygen Concentration - - Weight 127 kg (280 lb) 06/26/2024 4:12 PM CDT Height 182.9 cm (6') 06/26/2024 4:12 PM CDT Body Mass Index 37.97 06/26/2024 4:12 PM CDT Plan of Treatment Health Maintenance Due Date Last Done Comments Hepatitis C Virus (HCV) Screening 1971 TdaP Immunization 1971 Hepatitis B Immunization (1 of 3 - 19+ 3-dose series) 11/26/1990 Cologuard 11/26/2016 Colonoscopy 11/26/2016 Colorectal Cancer Screening 11/26/2016 Immunochemical Fecal Occult Blood 11/26/2016 Pneumococcal Immunization (5 0+ years) (1 of 1 - PCV) 11/26/2021 Zoster Immunization (1 of 2) 11/26/2021 Influenza Immunization (#1) 2025 SARS-COV-2 Immunization ( season) 2025 08/27/2021, 01/15/2021, 12/25/2020 Respiratory Syncytial Virus (RSV) Immunization (Adult) (1 - 1-dose 75+ series) 11/26/2046 Human Papillomavirus (HPV) Immunization Aged Out No longer eligible b ased on patient's age to complete this topic Meningococcal Immunization (ACWY) Aged Out No longer eligible b ased on patient's age to complete this topic Rotavirus Immunization Aged Out No lo nger eligible based on patient's age to complete this topic Insurance [address] [address] [facility] Care Teams Interface Analyst Relationship Specialty Start Date End Date Provider, None NAKIA PCP - General 11/03/23
[2025-06-13 14:24] VITALS: BP 170/88; PULSE 103; RESP 20; TEMP 36.6; O2SAT 98
--- NOTE | 2025-06-13 14:26 | ECG_ITS ---
Test Date: 2025-06-13 14:32:49 Measurements Intervals Logan Rate: 81 P: 0 MI: 0 QRS: 52 QRSD: 108 T: 12 QT: 357 QTc: 416 Interpretive Statements ATRIAL FIBRILLATION MINIMAL VOLTAGE CRITERIA FOR LVH, CONSIDER NORMAL VARIANT [MEETS CRITERIA IN ONE OF: R(aVL), S(V1), R(V5), R(V5/V6)+S(V1)] NONSPECIFIC T-WAVE ABNORMALITY WARNING: DATA QUALITY MAY AFFECT INTERPRETATION ABNORMAL ECG No previous ECG available for comparison Electronically Signed On 06-13-2025 17:58:48 CDT by Sim Quiroga M.D.
[2025-06-13 14:30] VITALS: BP 165/110; PULSE 98
[2025-06-13 14:35] VITALS: BP 171/108; PULSE 93
[2025-06-13 14:40] VITALS: BP 160/90; PULSE 95
--- NOTE | 2025-06-13 14:44 | PC.NURSE ---
Blood sugar 102.
== END 2025-06-13 15:05 | disposition short-term general hospital (02) ==
PROVIDERS: Emergency Provider Nurse Practitioner Family
DX: R42 Dizziness and giddiness (principal); I10 Essential (primary) hypertension; I48.91 Unspecified atrial fibrillation; Z87.891 Personal history of nicotine dependence
CPT/HCPCS: 82948; 93005; 99213; G0463

== ENCOUNTER 2025-09-06 09:00 | Emergency (ER) | payer OTHER, SELFPAY ==
--- NOTE | ~2025-09-06 | XR_ITS ---
EXAMINATION: XR shoulder LT min 2V, 09/06/2025 9:20 TEST ANALYST HISTORY: POST PAIN , NKI, RECENT HEAVY LIFTING COMPARISON: No comparisons available. Findings: No acute fracture or malalignment. No significant degenerative changes. Soft tissues unremarkable. Impression: No acute fracture or malalignment. Reviewed, dictated and finalized at location P. ANALYST Impression: No acute fracture or malalignment.
[2025-09-06 09:04] VITALS: BP 155/103; PULSE 91; RESP 18; TEMP 36.4; O2SAT 98
--- NOTE | 2025-09-06 09:15 | ECG_ITS ---
Test Date: 2025-09-06 09:29:43 Measurements Intervals [place]ps Rate: 85 P: 0 MD: 0 QRS: 20 QRSD: 106 T: -9 QT: 373 QTc: 444 Interpretive Statements ATRIAL FIBRILLATION VOLTAGE CRITERIA FOR LVH MINIMAL Q WAVES- HIGH LATERAL LEADS NONSPECIFIC T-WAVE ABNORMALITY- INFERIOR LEADS ABNORMAL ECG Compared to ECG 06/13/2025 14:32:49 No significant changes Electronically Signed On 09-06-2025 09:35:09 FRONT OFFICE COORDINATOR by Kike Cardenas D.O.
--- NOTE | 2025-09-06 09:51 | ED_ITS ---
HPI - Extremity Problem General Chief complaint: Extremity Problem,Nontraumatic Stated complaint: Left side shoulder pain Time Seen by Provider: 09/06/25 09:30 Source: patient and RN notes reviewed Mode of arrival: ambulatory Limitations: no limitations History of Present Illness HPI Narrative: 54-year-old male patient presents Express Care complaining of left upper back/shoulder pain for 2 weeks. Denies any falls or injury. Patient does report recent heavy lifting. Patient is worse when he lays on his left side. Patient describes as a stabbing sensation is back. Patient says it feels better when he puts his left arm above his head. Patient has any chest pain, dizziness, lightheadedness, shortness of breath, difficulty breathing, fevers, body aches, chills, cough, upper respiratory symptoms, any other symptoms. Patient tried ibuprofen without relief. Patient has had a history of cardiac ablation, atrial fibrillation, loop recorder. Related Data Allergies Allergy/AdvReac Type Severity Reaction Status Date / Time No Known Allergies Allergy Verified 09/06/25 09:15 Review of Systems 2 Review of Systems: CONSTITUTIONAL: Denies fever, chills, or sweats. EYES: Denies visual changes, redness, or discharge. ENT: Denies rhinorrhea, congestion, sore throat, or otalgia. CARDIOVASCULAR: Denies chest pain, palpitations, dizziness, lightheadedness, or edema. RESPIRATORY: Denies cough or dyspnea. GASTROINTESTINAL: Denies abdominal pain, nausea, vomiting, or diarrhea. GENITOURINARY: Denies dysuria or hematuria. SKIN: Denies rash or itching. MUSCULOSKELETAL: Positive for upper back pain/shoulder pain. Negative for joint pain, or myalgia. NEUROLOGIC: Denies headache, numbness, or weakness. PSYCHIATRIC: Denies anxiety or depression. All other systems reviewed are negative, except as documented in HPI. [facility] Past Medical History Medical History Atrial fibrillation Fracture of left elbow Surgical History Surgical History History of cardiac radiofrequency ablation x2 H/O arthroscopy of left knee Social History Social History Smoking packs per day: 1 Smoking cigarettes per day: 20.0 Years smoked: 25 Smoking pack-years: 25.00 Smoking status: Former smoker Tobacco type: cigarettes Additional smoking assessment comments: Quit September of 2018 Alcohol intake: current Alcohol use details: social Substance use type: does not use Living arrangements: with family Gender identity (if verbalized by the patient): Male Comments At the time of my signature, I reviewed and agree with the nursing past medical, surgical, social, and family history. There is no relevant family history pertinent to the patient complaint. Exam Narrative: GENERAL: This is a well-nourished, well-developed adult, in no apparent distress. They are non ill-appearing, nontoxic appearing. HEAD: normocephalic, atraumatic. EYES: Sclera clear/white. Conjunctiva normal. Vision is grossly intact. Extraocular movements intact EARS: External ears normal, Hearing grossly intact. NOSE: External nose normal THROAT: Mucous membranes moist, NECK: Neck supple, non-tender without lymphadenopathy, masses or thyromegaly. CARDIOVASCULAR: Irregular rate and irregular rhythm without murmurs, gallops, or rubs. RESPIRATORY: Clear to auscultation. Breath sounds equal bilaterally. No wheezes, rales, or rhonchi. SKIN: warm, Dry, intact with no suspicious lesions or rash, good texture and turgor. NEURO: awake, alert, and oriented to person, place and time. There were no obvious focal neurologic abnormalities. EXTREMITIES: Left shoulder: No obvious deformity, bruising or redness, swelling or injury. No bony tenderness. Normal range of motion. Left radial pulse 2 +and palpable. Sensation intact. Capillary refill less than 2 seconds. Neurovascular status intact. BACK: Nontender without deformity. No CVA tenderness. No cervical, thoracic, or lumbar point tenderness, crepitus, or step-offs. Course Course Level of Care: Express Care Visit Vital Signs Vital signs: Vital Signs Temperature 97.6 F 09/06/25 09:04 Pulse Rate 91 09/06/25 09:04 Respiratory Rate 18 09/06/25 09:04 Blood Pressure 155/103 H 09/06/25 09:04 Pulse Oximetry 98 09/06/25 09:04 Oxygen Delivery Room Air 09/06/25 09:04 Temperature 97.6 F 09/06/25 09:04 Pulse Rate 91 09/06/25 09:04 Respiratory Rate 18 09/06/25 09:04 Blood Pressure 155/103 H 09/06/25 09:04 Pulse Oximetry 98 09/06/25 09:04 Oxygen Delivery Room Air 09/06/25 09:04 [facility] Narrative Medical decision making narrative: EKG is atrial fibrillation without any ischemic findings, no RVR. EKG unchanged compared to previous EKG. Patient is having no chest pain. Lung sounds clear to auscultation, patient nontoxic appearing, no apparent distress. Vital signs hemodynamically stable. Left shoulder x-ray reveals no acute fracture or findings. Symptoms likely muscle skeletal in nature. Will send patient home on methocarbamol. Discussed supportive care Discussed physical exam findings. Advised supportive measures and signs/symptoms to go to the ER. Pt is appropriate for outpt treatment and f/u. Differential Diagnosis Differential Diagnosis: Shoulder sprain, back sprain, radiculopathy, Imaging Data Radiologist's impression: ITS Impressions Shoulder X-Ray 09/06/25 09:27 Impression: No acute fracture or malalignment. ECG Data EKG #1: Attestation: I personally reviewed and interpreted this ECG as follows: ECG completion date: 09/06/25 ECG completion time: 09:29 Prior ECG tracings: available for review Interpretation: Atrial fibrillation, unchanged from previous EKG normal rate, atrial fibrillation, no ectopy, no ST changes, normal QRS, normal QT and NL axis Critical Care Time Critical Care Time Critical Care Time: No Discharge Plan Discharge Clinical Impression: Upper back pain on left side Patient Disposition: Home Condition: Stable Instructions: Back Pain (ED) Additional Instructions: The EKG today shows atrial fibrillation, and change to previous EKG. Your left shoulder x-ray is negative for any fractures or acute findings. Take the muscle relaxer as directed. Do not drive or operate heavy machine, or work while taking the medication as it can make you drowsy. Use the lidocaine patches as needed for pain. Apply to the affected area, follow instructions on the packaging. Remove after 12 hours. You may take ibuprofen 600 mg to 800 mg every 6-8 hours. Do not exceed more than 800 mg of ibuprofen per dose. Do not exceed more than 3200 mg ibuprofen in a day. You may take up to 1000 mg Tylenol every 6-8 hours. Do not exceed 1000 mg per dose, do exceed more than 4000 mg of Tylenol in a day. Go to the emergency department if you develop any numbness or tingling to your groin, weakness in your legs, or any loss of bowel or bladder function, chest pain, breathing problems, fevers, or any serious concerns. Follow-up PCP in 3-5 days. Patient Language: Azerbaijani Prescriptions: New methocarbamol 750 mg tablet 750 mg PO TID Qty: 12 0RF Follow-up/Referrals: PHYSICIAN,SLAB GRINDER [Primary Care Provider, Internal Medicine] Time of Disposition: 09:50
== END 2025-09-06 09:54 | disposition home or self-care (01) ==
DX: M54.6 Pain in thoracic spine (principal); I48.91 Unspecified atrial fibrillation; Z87.891 Personal history of nicotine dependence
CPT/HCPCS: 73030; 93005; 99213; G0463